=== PATIENT | female | born 1965 | race Two or more races ===

== ENCOUNTER 2019-04-10 09:13 | Emergency (ER) | payer OTHER ==
[~2019-04-10] VITALS: Ht 157.5 cm; Wt 68.9 kg
[~2019-04-10 09:13] MED LIST: BENADRYL25 MG PO; JANUMET 50-1,01 EACH; LANTUS SOL100 UNIT/1
[2019-04-10] MEDS ORDERED: SINGULAIR4 M1 (09:37)
== END 2019-04-10 16:10 | disposition home or self-care (01) ==
LOC: ER 09:13
DX: K52.9 Noninfective gastroenteritis and colitis, unspecified (principal); E86.0 Dehydration

== ENCOUNTER 2019-08-13 17:30 | Emergency (ER) | payer OTHER ==
[~2019-08-13] VITALS: Ht 157.5 cm; Wt 69.4 kg
[~2019-08-13 17:30] MED LIST changes: +SINGULAIR4 M1
[2019-08-13] MEDS ORDERED: HUMULIN 70100 UNIT/2 (17:41)
== END 2019-08-13 18:50 | disposition home or self-care (01) ==
LOC: ER 17:30
DX: L02.416 Cutaneous abscess of left lower limb (principal)

== ENCOUNTER 2020-03-05 20:17 | Emergency (ER) | payer OTHER ==
[~2020-03-05] VITALS: Ht 157.5 cm; Wt 67.1 kg
[~2020-03-05 20:17] MED LIST changes: +HUMULIN 70100 UNIT/2
== END 2020-03-05 22:33 | disposition home or self-care (01) ==
LOC: ER 20:17
DX: N39.0 Urinary tract infection, site not specified (principal)

== ENCOUNTER 2020-06-01 19:35 | Emergency (ER) | payer OTHER ==
[~2020-06-01] VITALS: Ht 157.5 cm; Wt 65.8 kg
[2020-06-02] MEDS ORDERED: KETO10TA2 PO (03:57)
[2020-06-02] MEDS ORDERED: KEFLEX500 MG PO (03:57)
== END 2020-06-02 05:16 | disposition home or self-care (01) ==
LOC: ER 19:35 → EDBD 20:36 → ER 20:36
DX: N39.0 Urinary tract infection, site not specified (principal); R10.13 Epigastric pain; K76.0 Fatty (change of) liver, not elsewhere classified; M54.89 Other dorsalgia

== ENCOUNTER 2020-07-04 17:35 | Outpatient (CLI) | payer OTHER ==
[~2020-07-04 17:35] MED LIST changes: +KEFLEX500 MG PO; +KETO10TA2 PO
== END 2020-07-04 18:00 | disposition home or self-care (01) ==
LOC: LAB 17:35
PROVIDERS: ATTEND Urology
DX: N30.00 Acute cystitis without hematuria (principal)

== ENCOUNTER 2020-07-08 10:15 | Outpatient (CLI) | payer OTHER | END 2020-07-08 10:23 | disposition home or self-care (01) | LOC: RAD 10:15 | PROVIDERS: ATTEND Urology | DX: N20.1 Calculus of ureter (principal) ==

== ENCOUNTER 2025-03-25 08:47 | Outpatient (CLI) | payer OTHER | END 2025-03-25 08:49 | disposition home or self-care (01) | LOC: SONOGRAMA 08:47 | PROVIDERS: ATTEND Pathology Anatomic Pathology & Clinical Pathology | DX: R59.0 Localized enlarged lymph nodes (principal); C73 Malignant neoplasm of thyroid gland ==